=== PATIENT | male | born 1965 | race Caucasian/White ===

== ENCOUNTER 2018-08-07 21:24 | Emergency (ER) | payer OTHER, MEDICAID, SELFPAY ==
[2018-08-07 21:37] VITALS: BP 120/63; PULSE 60; RESP 18; TEMP 36.8; O2SAT 97; BMI 22.1
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
[2018-08-07 22:12] VITALS: PULSE 60
[2018-08-07] MEDS: HYDROCODONE/ACET 5/325 TABLET 1 TAB PO (22:36)
[2018-08-07 23:00] VITALS: BP 104/48; PULSE 84; RESP 14; O2SAT 96
[2018-08-07] MEDS: HYDROCODONE/ACET 5/325 PREPACK 1 BOTTLE MISC (23:05)
== END 2018-08-07 23:00 | disposition home or self-care (01) ==
PROVIDERS: Emergency Provider Emergency Medicine
DX: S42.021A Displaced fracture of shaft of right clavicle, initial encounter for closed fracture (principal); V28.9XXA Unspecified motorcycle rider injured in noncollision transport accident in traffic accident, initial encounter
CPT/HCPCS: 73000; 99282; 99283